=== PATIENT | male | born 1990 | race Caucasian/White ===

== ENCOUNTER 2025-11-24 02:21 | Emergency (ER) | payer SELFPAY ==
[~2025-11-24] VITALS: Ht 162.6 cm; Wt 70.2 kg
[2025-11-24 02:26] VITALS: O2SAT 100
[2025-11-24] MEDS: ACETAMINOPHEN 500MG TABLET PO ONE (03:08)
[2025-11-24] MEDS: FAMOTIDINE 20MG/2ML VIAL IV ONE (03:17)
[2025-11-24] MEDS: ONDANSETRON HCL 4MG/2ML INJ IV ONE (03:18)
[2025-11-24] MEDS: KETOROLAC 15MG/ML VIAL IV NR (03:19)
[2025-11-24 03:22] LABS: CREATININE 1.1 mg/dL (0.6-1.3); UREA NITROGEN BLOOD 20 mg/dL (9-23)
[2025-11-24 03:23] LABS: ETHANOL BLOOD < 10 mg/dL (<10); PROTEIN TOTAL 6.8 g/dL (6.0-8.3); TROPONIN I HIGH SENSITIVITY 4 ng/L (3.0-53)
[2025-11-24 03:24] LABS: ASPARTATE AMINOTRANSFERASE 37 IU/L (<34); BILIRUBIN DIRECT 0.1 mg/dL (<=3.0)
[2025-11-24 03:25] LABS: BILIRUBIN TOTAL 0.5 mg/dL (0.1-1.0)
[2025-11-24 03:27] LABS: BASOPHILS % 0.4 % (0.0-2.0); EOSINOPHILS % 0.4 % (0.0-5.0); HEMATOCRIT. 45.0 % (42.0-52.0); HEMOGLOBIN. 15.1 g/dL (14.0-18.0); LYMPHOCYTES % 24.5 % (20.0-50.0); MEAN PLATELET VOLUME 8.0 fl (7.4-10.4); MONOCYTES % 4.3 % (2.0-8.0); NEUTROPHILS % 70.4 % (40.0-76.0); PLATELET 290 x1000/uL (130-400); RED BLOOD CELL COUNT 5.13 mill/uL (4.7-6.1); RED CELL DISTRIBUTION WIDTH 13.7 % (11.6-14.6)
[2025-11-24] MEDS: SODIUM CHLORIDE 0.9% 1,000 ML IV ONE ×2 (03:46→03:59)
[2025-11-24] MEDS: CEFTRIAXONE 2GM/50ML 50 ML IV ONE (03:59)
[2025-11-24] MEDS ORDERED: ONDA-239 PO (04:54)
[2025-11-24 05:18] LABS: CLARITY URINE CLEAR (CLEAR); COLOR URINE YELLOW (YELLOW); GLUCOSE URINE NEGATIVE (NEGATIVE); KETONES URINE TRACE (NEGATIVE); LEUKOCYTE ESTERASE URINE NEGATIVE (NEGATIVE); NITRITE URINE NEGATIVE (NEGATIVE); OCCULT BLOOD URINE NEGATIVE (NEGATIVE); PH URINE 6.0 (4.5-8.0); PROTEIN URINE NEGATIVE (NEGATIVE); SPECIFIC GRAVITY URINE 1.020 (1.005-1.030); UROBILINOGEN URINE 0.2 E.U./dL (0.2-1.0)
[2025-11-24 05:21] VITALS: BP 112/62; PULSE 89; RESP 16; TEMP 36.8; O2SAT 96
[2025-11-24 05:45] LABS: *AMPHETAMINES SCREEN URINE NEGATIVE (NEGATIVE); *BARBITURATES SCREEN URINE NEGATIVE (NEGATIVE); *BENZODIAZEPINES SCREEN URINE NEGATIVE (NEGATIVE); *COCAINE SCREEN URINE NEGATIVE (NEGATIVE); CANNABINOID URINE SCREEN PRESUMPTIVE POSITIVE (NEGATIVE); ECSTASY MDMA SCREEN URINE NEGATIVE (NEGATIVE); METHADONE URINE SCREEN NEGATIVE (NEGATIVE); OPIATES URINE SCREEN NEGATIVE (NEGATIVE); PHENCYCLIDINE URINE SCREEN NEGATIVE (NEGATIVE)
== END 2025-11-24 05:21 | disposition home or self-care (01) ==
LOC: ER 02:21 → CMPBEDREQ 11-25 10:35
DX: R10.84 Generalized abdominal pain (principal); R06.02 Shortness of breath; R11.2 Nausea with vomiting, unspecified; D72.829 Elevated white blood cell count, unspecified; Z79.899 Other long term (current) drug therapy
CPT/HCPCS: 80076; 80305; 80048; 81003; 80320; 83880; 83690; 83735; 85025; 84484; 36415; 71250; 74176; 93005; 96365; 96375; 99285; J0696; J1308; J1885; J2405; J7030; Z7610; G0480